=== PATIENT | male | born 1980 | race Hispanic/Latino ===

== ENCOUNTER 2024-03-10 03:03 | Emergency (ER) | payer OTHER, SELFPAY ==
--- NOTE | ~2024-03-10 | CT_ITS ---
EXAMINATION: CT abdomen pelvis w con DATE: 03/10/2024 04:13 INDICATION: Abdominal and back pain TECHNIQUE: Computed tomography (CT) of the abdomen and pelvis was performed with 100 CC Omnipaque 350 intravenous contrast. Automated exposure control and iterative reconstruction technique were employe d. Exam dose: 1254.10 mGy-cm total exam DLP. COMPARISON: 11/19/2016 gallbladder ultrasound 08/15/2016 CT abdomen pelvis FINDINGS: Minimal atelectasis at the lung bases. Diffuse hepatic steatosis. No hepatic, splenic, pancreatic, adrenal or renal space occupying mass les ion. The gallbladder is distended. No gallbladder wall thickening or pericholecystic fluid or fat str anding. Normal caliber of the abdominal aorta. No intraperitoneal or retroperitoneal or pelvic mass lesion or adenopathy or ascites. Normal appendix. No bowel obstruction or intraperitoneal free air. There is small fat-containing umbilical hernia. Small fat-containing left inguinal hernia. No osteolytic or osteoblastic lesions are noted. IMPRESSION: Hepatic steatosis Reviewed, dictated and finalized at [facility] Reviewed, dictated and finalized at [facility] IMPRESSION: Hepatic steatosis
[2024-03-10 03:13] VITALS: BP 146/105; PULSE 56; RESP 13; TEMP 36.4; O2SAT 99
[2024-03-10 03:24] LABS: Basophils Percent Auto 0.3 % (0.2-1.2); Eosinophils Absolute Auto 0.2 K/mm3 (0-0.3); Eosinophils Percent Auto 2.3 % (0-4.4); Hematocrit 44.4 % (42.0-52.0); Hemoglobin 15.5 g/dL (14.0-18.0); Immature Granulocyte Absolute 0.03 K/mm3 (0.00-0.031); Immature Granulocyte Percent A 0.4 % (0-0.5); Lymphocytes Absolute Auto 2.58 K/mm3 (0.9-3.2); Lymphocytes Percent Auto 36.6 % (18.3-44.2); Mean Corpuscular HGB Conc 34.9 g/dl (32-36); Mean Corpuscular Hemoglobin 30.3 pg (26-34); Mean Corpuscular Volume 86.7 fl (80-100); Mean Platelet Volume 10.7 fl (7.4-10.4); Monocytes Absolute Auto 0.7 K/mm3 (0.1-0.6); Monocytes Percent Auto 9.2 % (2.6-8.5); Neutrophils Absolute Auto 3.6 K/mm3 (1.3-6.7); Neutrophils Percent Auto 51.2 % (45.5-73.1); Platelet Count Result 241 k/mm3 (150-375); Red Blood Count 5.12 M/mm3 (4.6-6.20); Red Cell Distribution Width 13.1 % (11.5-14.5)
--- NOTE | 2024-03-10 03:29 | PC.NURSE ---
upon arrival patient noted to have vomitted x3. pt visibly uncomfortable. this rn obtained a verbal order to give patient 4mg of zofran IV push per EDP Dr. roberson. this rn used closed loop communication to confirm med/ route/ patient/ time/ dose.
[2024-03-10 03:32] LABS: Appearance Urine Clear (Clear); Bilirubin Urine Negative (Negative); Blood Urine Negative (Negative); Color Urine Yellow (Yellow); Glucose Urine UA Negative (Negative); Ketones Urine Negative (Negative); Leukocyte Esterase Ur Negative LEU/UL (Negative); Nitrate Urine Negative (Negative); Protein Urine Negative (Negative); Specific Grav Ur 1.014 (1.001-1.035); Urobilinogen Urine 0.2 mg/dL (<2.0)
[2024-03-10 03:34] LABS: Alanine Aminotransferase 78 U/L (6-50); Albumin Level 4.6 g/dL (3.5-5.1); Alkaline Phosphatase 46 U/L (38-126); Anion Gap 11 mmol/L (4-12); Aspartate Amino Transferase 41 U/L (17-59); Bilirubin,Total 0.8 mg/dL (0.2-1.3); Blood Urea Nitrogen 16 mg/dL (9-20); Calcium 9.3 mg/dL (8.4-10.2); Carbon Dioxide 28 mmol/L (22-30); Chloride 100 mmol/L (98-107); Estimated CRCL calculation 79 ml/min; Estimated Glomerular Filt Rate > 60; Glucose 118 mg/dL (65-110); Potassium 3.8 mmol/L (3.4-5.0); Sodium 139 mmol/L (137-145)
[2024-03-10 03:36] LABS: Add Urine Microscopic? NO
--- NOTE | 2024-03-10 03:40 | PC.NURSE ---
EDP Dr. Kirsten PARDO 1mg dilauded IVP.
[2024-03-10] MEDS: ONDANSETRON INJ 4 MG/2 ML VIAL IV PUSH ×2 (03:43→04:59)
[2024-03-10] MEDS: HYDROmorphone HCL INJ (*CRX) 1 MG/ML SYR IV PUSH (03:43)
[2024-03-10] MEDS: SODIUM CHLORIDE 0.9% IV 2,000 ML 999 ML IV CONT (04:13)
[2024-03-10] MEDS: FAMOTIDINE 20 MG/2 ML VIAL IV PUSH (04:15)
[2024-03-10 04:19] VITALS: BP 157/83; PULSE 56; RESP 18; O2SAT 100
[2024-03-10 04:24] LABS: Amphetamine Screen Urine Negative (Negative); Barbiturate Screen Urine Negative (Negative); Benzodiazepines Screen Urine Negative (Negative); Cannabinoid Screen Urine Negative (Negative); Cocaine Screen Urine Negative (Negative); Methadone Screen Urine Negative (Negative); Opiate Screen Urine Negative (Negative); Phencyclidine Screen Urine Negative (Negative)
[2024-03-10 04:37] LABS: Lactic Acid Reflex 1.5 mmol/L (0.7-2.0)
--- NOTE | 2024-03-10 04:37 | ED.GENADULT ---
HPI - General Adult General Chief complaint: Abdominal Pain Stated complaint: abd pain Time Seen by Provider: 03/10/24 03:11 History of Present Illness HPI narrative: [place]ian speaking-[employer] services from communication This is a 43-year-old male presenting with chief complaint of abdominal pain. Patient states the pain started this afternoon. It is a burning pain in the upper quadrants.. It is severe and constant. He has never had pain like this in the past. He has both nausea and vomiting. No urinary deficits. No fevers or chills. Related Data Allergies Allergy/AdvReac Type Severity Reaction Status Date / Time No Known Allergies Allergy Verified 03/10/24 03:12 Exam Narrative: APPEARANCE: Patient cannot sit still and is rolling back and forth pain Head: atraumatic. EYES: EOMI, NOSE: Atraumatic NECK: Trachea midline RESPIRATORY: No increased rate of breathing CARDIOVASCULAR: RRR, ABDOMINAL: Tenderness along the upper quadrants primarily in the epigastric area. No CVA tenderness MUSCULOSKELETAl: No obvious deformities NEURO: Alert. Moving 4/4 extremities SKIN:: Diaphoretic PSYCHIATRIC: Normal affect Course Vital Signs Vital signs: Vital Signs Temperature 97.5 F L 03/10/24 03:13 Pulse Rate 56 L 03/10/24 03:13 Respiratory Rate 13 03/10/24 03:13 Blood Pressure 146/105 H 03/10/24 03:13 Pulse Oximetry 99 03/10/24 03:13 Oxygen Delivery Room Air 03/10/24 03:13 Temperature 97.5 F L 03/10/24 03:13 Pulse Rate 57 L 03/10/24 04:46 Respiratory Rate 19 03/10/24 04:46 Blood Pressure 147/100 H 03/10/24 04:46 Pulse Oximetry 98 03/10/24 04:46 Oxygen Delivery Room Air 03/10/24 03:13 Medical Decision Making [facility] Narrative Medical decision making narrative: -Course: 43-year-old male presenting with severe epigastric pain. CT abdomen pelvis unremarkable. Laboratory studies within normal limits. Patient's presentation sick consistent with peptic ulcer disease. Patient was given multiple rounds of pain medication and antiemetics and mentally get his symptoms under control. He is now tolerating p.o. and was able to drink an entire glass of liquid. I discussed the patient's results with him via the float builder service and will discharge him on a PPI, Carafate and with pain control. When I was explaining to the patient that this can be caused by eating very spicy food both the patient and his friend started laughing. Patient will be discharged with GI follow-up. Given return precautions. -DDX includes but is not limited to: Peptic ulcer disease, pancreatitis. gastritis, gallbladder disease, small-bowel obstruction, cannabinoid hyperemesis -Independent interpretation of studies: Labs reviewed within normal limits. CT shows possible cystitis no other findings. UA no indicative of cystitis. -Interventions: 2 L normal saline, Pepcid, Protonix, Dilaudid, Zofran, Maalox -Shared decision making / Disposition: Discharge -RX Pepcid, Carafate, tylenol, oxycodone x6 Vital Signs Vital Signs: Vital Signs Temperature 97.5 F L 03/10/24 03:13 Pulse Rate 56 L 03/10/24 03:13 Respiratory Rate 13 03/10/24 03:13 Blood Pressure 146/105 H 03/10/24 03:13 Pulse Oximetry 99 03/10/24 03:13 Oxygen Delivery Room Air 03/10/24 03:13 Temperature 97.5 F L 03/10/24 03:13 Pulse Rate 57 L 03/10/24 04:46 Respiratory Rate 19 03/10/24 04:46 Blood Pressure 147/100 H 03/10/24 04:46 Pulse Oximetry 98 03/10/24 04:46 Oxygen Delivery Room Air 03/10/24 03:13 Lab Data 03/10/24 03:19 03/10/24 03:19 Labs: Lab Results 03/10/24 03/10/24 03/10/24 Range/Units 03:19 03:26 04:16 WBC 7.0 (4.5-10.0) K/mm3 RBC 5.12 (4.6-6.20) M/mm3 Hgb 15.5 (14.0-18.0) g/dL Hct 44.4 (42.0-52.0) % MCV 86.7 (80-100) fl MCH 30.3 (26-34) pg MCHC 34.9 (32-36) g/dl RDW 13.1 (11.5-14.5) % Plt Count 241 (150-37
[2024-03-10 04:46] VITALS: BP 147/100; PULSE 57; RESP 19; O2SAT 98
[2024-03-10] MEDS: PANTOPRAZOLE SODIUM IV 40 MG VIAL IV PUSH (04:54)
[2024-03-10] MEDS: MAG HYDROX/AL HYDROX/SIMETH 30 ML UDC PO (04:54)
[2024-03-10 04:55] LABS: Lipase 82 U/L (23-300)
[2024-03-10] MEDS: HYDROmorphone HCL INJ (*CRX) 1 MG/ML SYR 0.5 MG IV PUSH (06:02)
[2024-03-10 06:21] VITALS: BP 135/80; PULSE 61; RESP 16; O2SAT 95
== END 2024-03-10 06:42 | disposition home or self-care (01) ==
PROVIDERS: Emergency Provider Emergency Medicine
DX: K27.9 Peptic ulcer, site unspecified, unspecified as acute or chronic, without hemorrhage or perforation (principal)
CPT/HCPCS: 36415; 74177; 80053; 80307; 81003; 83605; 83690; 85025; 96361; 96374; 96375; 96376; 99284; A9270; J1170; J2405; J2470; J7030; Q9967

== ENCOUNTER 2024-03-28 08:26 | Day surgery (SDC) | payer OTHER, SELFPAY ==
[2024-03-20 10:09] VITALS: BMI 34.8
[2024-03-22 13:42] VITALS: BMI 32.4
[2024-03-28 10:15] VITALS: BP 115/85; PULSE 60; RESP 15; TEMP 36.7; O2SAT 98
[2024-03-28] MEDS: LACTATED RINGERS 1,000 ML 150 ML IV CONT (10:23)
--- NOTE | 2024-03-28 10:29 | WPDHPUPDATE1 ---
History and Physical Update Update Date/Time: 03/28/24 10:29 Patient states epigastric pain and nausea has improved take pantoprazole 40mg p.o. b.i.d. also Carafate 1g q.i.d. History and Physical has been reviewed, including an updated exam of the patient. There are NO changes in the patient's condition. Risks, benefits, and alternatives have been discussed and questions answered. Patient agrees to proceed with procedure.
--- NOTE | 2024-03-28 11:42 | P.PNAN_ITS ---
Anes - Initial Pre Proc Eval Procedure: Operation Date: 03/28/24 11:00 Proposed Procedures p Esophagogastroduodenoscopy - Sourav Rivera MD Date/Time: 03/28/24 11:42 Surgeon: Sourav Rivera MD Pre Op Diagnosis: Upper Abdominal Pain,unspecified w/o Patient Data Age: 43 Gender: M Height: 1.7 m Weight: 94 kg Last Vital Signs Temp 36.7 C 03/28/24 10:15 Pulse 60 03/28/24 10:15 Resp 15 03/28/24 10:15 BP 115/85 03/28/24 10:15 Pulse Ox 98 03/28/24 10:15 O2 Del Method Room Air 03/28/24 10:15 Allergies Allergy/AdvReac Type Severity Reaction Status Date / Time No Known Allergies Allergy Verified 03/28/24 10:04 Home Medications Medication Instructions Recorded Confirmed Type pantoprazole 40 mg tablet,delayed 40 mg PO BID #60 tabs 03/12/24 03/28/24 Rx release sucralfate 1 gram tablet (Carafate) 1 g PO ACHS #120 tabs 03/12/24 03/28/24 Rx Patient hx anesthesia problems: none Family hx anesthesia problems: none Results Review: All pre-operative results and documents have been reviewed as part of the pre- operative evaluation. [facility] Social History Social History Smoking status: Never smoker Alcohol intake: never Substance use: never Substance use type: does not use Living arrangements: with family Spiritual care concerns: No Anes - Eval Final PreProcedure Day of Procedure 03/28/24 11:42 Patient weight: obese Heart: regular rate and rhythm Lungs: clear to auscultation Airway: Mallampati scale class II Neurological: alert and oriented Last oral intake: >/= 8 hours ASA classification: II Emergent: no Anesthetic plan: proceed Anesthesia type and monitoring: general GIVS and standard monitoring Results Review: All pre-operative results and documents have been reviewed as part of the pre- operative evaluation. Informed Consent: The patient's anesthetic plan and its attendant risks and benefits were discussed with the patient/family/POA. Questions were solicited and answers provided to the satisfaction of the patient/family/POA.
[2024-03-28 11:56] VITALS: BP 125/81; PULSE 67; RESP 15; O2SAT 98
[2024-03-28 12:06] VITALS: BP 118/88; PULSE 58; RESP 15; O2SAT 98
--- NOTE | 2024-03-28 12:07 | WPDANESPN ---
Anes - Prog Note Post-Op Date/Time: 03/28/24 12:07 Cardiovascular status: normal Respiratory status: normal Airway patency: baseline Mental status: baseline Post-Op hydration status: normal Vital Signs: Last Vital Signs Temp 36.7 C 03/28/24 10:15 Pulse 67 03/28/24 11:56 Resp 15 03/28/24 11:56 BP 125/81 03/28/24 11:56 Pulse Ox 98 03/28/24 11:56 O2 Del Method Room Air 03/28/24 11:56 Pain Score (VAS): 0 Patient Feedback: Patient satisfied with anesthetic care.
[2024-03-28 12:16] VITALS: BP 120/95; PULSE 52; RESP 15; O2SAT 100
== END 2024-03-28 12:45 | disposition home or self-care (01) ==
PROVIDERS: Visit Provider Internal Medicine Gastroenterology
PROC: 0DJ08ZZ Inspection of Upper Intestinal Tract, Via Natural or Artificial Opening Endoscopic (ICD-10-PCS; CPT 43235; principal; 2024-03-28 11:00)
DX: K21.9 Gastro-esophageal reflux disease without esophagitis (principal); R10.13 Epigastric pain
CPT/HCPCS: 43239

== ENCOUNTER 2024-05-01 05:39 | Emergency (ER) | payer OTHER, SELFPAY ==
--- NOTE | ~2024-05-01 | XR_ITS ---
PA, oblique, and lateral views of the left fifth finger CLINICAL HISTORY: Laceration, foreign body FINDINGS: No fracture or dislocation seen. Joint spaces are intact. Soft tissues are unremarkable. No radiopaque foreign body. IMPRESSION: Unremarkable exam. No radiopaque foreign body. Reviewed, dictated and finalized at [facility].
[2024-05-01 05:49] VITALS: BP 124/93; PULSE 65; RESP 15; TEMP 36.7; O2SAT 98
[2024-05-01] MEDS: LIDO 1%/EPINEPHRINE 1:100,000 20 ML VIAL (07:29)
--- NOTE | 2024-05-01 07:39 | ED.GENADULT ---
HPI - General Adult General Chief complaint: Extremity Injury, Upper Stated complaint: left pinky scar Time Seen by Provider: 05/01/24 05:47 History of Present Illness HPI narrative: Patient is a 43-year-old male who presents ER with concerns for imbedded foreign body. He was on a wooden ladder yesterday when he lost his balance and had multiple splinters in his left hand. He still has 1 over the proximal phalanx of the left 5th digit on the palmar aspect. No drainage. He is unable to get it out. He has pain with attempting to flex the hand. No fevers or chills. No purulent drainage. Tetanus updated 9 years ago. Related Data Allergies Allergy/AdvReac Type Severity Reaction Status Date / Time No Known Allergies Allergy Verified 05/01/24 05:53 Review of Systems Constitutional: Constitutional: Reports no additional constitutional complaints Musculoskeletal: Musculoskeletal: Denies arthralgias, Denies joint swelling and Denies muscle cramps Integumentary/Breasts: Skin/Breast: Reports erythema and Denies rash Comments: abrasion fingers PMFSH Past Medical History Medical History (Updated 05/01/24 @ 08:33 by Zurdo Gardner MD) GERD (gastroesophageal reflux disease) Hepatic steatosis Social History Social History Smoking status: Never smoker Alcohol intake: never Substance use: never Substance use type: does not use Living arrangements: with family Spiritual care concerns: No Exam Narrative: GENERAL: Well-appearing, well-nourished, and in no acute distress. HEAD: Normocephalic, atraumatic. EXTREMITIES: Left hand exam reveals normal strength and range of motion of digits 1-4. Digit 5 with decreased flexion due to pain but normal extension strength. There are 2 defects in the skin over the proximal phalanx consistent with splinter injury. A foreign body can be felt beneath the skin but it seems slightly deep. SKIN: Warm, dry, no rash. NEURO: No focal deficits. Alert and oriented x3. PSYCH: Normal mood and affect. Course Course Emergency Course: Foreign body removed. Bandage applied. Discharge with prophylactic antibiotic. Vital Signs Vital signs: Vital Signs Temperature 98.1 F 05/01/24 05:49 Pulse Rate 65 05/01/24 05:49 Respiratory Rate 15 05/01/24 05:49 Blood Pressure 124/93 H 05/01/24 05:49 Pulse Oximetry 98 05/01/24 05:49 Oxygen Delivery Room Air 05/01/24 05:49 Temperature 98.1 F 05/01/24 05:49 Pulse Rate 66 05/01/24 07:55 Respiratory Rate 16 05/01/24 07:55 Blood Pressure 125/93 H 05/01/24 07:55 Pulse Oximetry 100 05/01/24 07:55 Oxygen Delivery Room Air 05/01/24 05:49 Procedures Foreign Body Removal Foreign Body #1: Foreign Body Removal Date: 05/01/24 Foreign Body Removal Time: 08:30 Site: left and hand Description of foreign body: other (Splinter) Sedation/Analgesia: none Technique: removal with forceps and incision made to facilitate removal Confirmed by:: direct visualization Complications: none Medical Decision Making Vital Signs Vital Signs: Vital Signs Temperature 98.1 F 05/01/24 05:49 Pulse Rate 65 05/01/24 05:49 Respiratory Rate 15 05/01/24 05:49 Blood Pressure 124/93 H 05/01/24 05:49 Pulse Oximetry 98 05/01/24 05:49 Oxygen Delivery Room Air 05/01/24 05:49 Temperature 98.1 F 05/01/24 05:49 Pulse Rate 66 05/01/24 07:55 Respiratory Rate 16 05/01/24 07:55 Blood Pressure 125/93 H 05/01/24 07:55 Pulse Oximetry 100 05/01/24 07:55 Oxygen Delivery Room Air 05/01/24 05:49 Imaging Data Radiologist's impression: ITS Impressions Finger X-Ray 05/01/24 07:39 IMPRESSION: Unremarkable exam. No radiopaque foreign body. Discharge Plan Discharge Clinical Impression: Foreign body finger Patient Disposition: Home, Self-Care Condition
[2024-05-01] MEDS: TETANUS,DIPHTHERIA,AC PERTUSSIS ADULT (0.5 ML) BOOSTRIX IM (07:49)
[2024-05-01 07:55] VITALS: BP 125/93; PULSE 66; RESP 16; O2SAT 100
== END 2024-05-01 09:25 | disposition home or self-care (01) ==
PROVIDERS: Emergency Provider Emergency Medicine
DX: S60.552A Superficial foreign body of left hand, initial encounter (principal); W45.8XXA Other foreign body or object entering through skin, initial encounter; K21.9 Gastro-esophageal reflux disease without esophagitis; Z23 Encounter for immunization
CPT/HCPCS: 10120; 73140; 90471; 90715; 99283

== ENCOUNTER 2024-05-19 15:43 | Emergency (ER) | payer OTHER, SELFPAY ==
--- NOTE | ~2024-05-19 | XR_ITS ---
XR foot RT min 3V Ordering provider: Chitra Pollard PA-C History: . pain, rolled foot . Comparison: None. FINDINGS: BONES: No acute fracture or dislocation. JOINT SPACES: Normal. No tarsal coalition. SOFT TISSUES: Normal. IMPRESSION: No acute osseous abnormality of the right foot. Reviewed, dictated and finalized at [facility].
--- NOTE | ~2024-05-19 | XR_ITS ---
XR ankle RT min 3V Ordering provider: Chitra Pollard PA-C History: . fall, pain . Comparison: None. FINDINGS: BONES: No acute fracture or dislocation. JOINT SPACES: Normal. SOFT TISSUES: Normal. IMPRESSION: No acute osseous abnormality of the right ankle. Reviewed, dictated and finalized at [facility].
[2024-05-19 16:11] VITALS: BP 135/71; PULSE 67; RESP 16; TEMP 36.6; O2SAT 98
--- NOTE | 2024-05-19 19:11 | PC.NURSE ---
Assumed care of patient at this time.
--- NOTE | 2024-05-19 19:24 | ED.LOWEXIN ---
HPI - Extremity Injury (Lower) General Chief Complaint: Extremity Injury, Lower Stated Complaint: right ankle injury Time Seen by Provider: 05/19/24 18:51 Source: patient Mode of arrival: ambulatory Limitations: no limitations History of Present Illness HPI Narrative: Patient is a 43-year-old male who presents the ED with report of right foot and ankle pain. Patient reports he twisted his ankle a few weeks ago while playing soccer. He states pain was improving and stable, but he twisted his ankle again on Monday. He then attempted going on a hike yesterday and reports having worsening pain now. Complains of pain throughout his ankle and lateral foot. Is having trouble bearing weight due to pain. Took Advil around 1:00 p.m. today. Denies any numbness. Related Data Allergies Allergy/AdvReac Type Severity Reaction Status Date / Time No Known Allergies Allergy Verified 05/19/24 16:13 Review of Systems Review of Systems: All systems reviewed & are unremarkable except as noted in HPI. All systems reviewed & are unremarkable except as noted in HPI and below PMFSH Past Medical History Medical History GERD (gastroesophageal reflux disease) Hepatic steatosis Social History Social History Smoking status: Never smoker Alcohol intake: never Substance use: never Substance use type: does not use Living arrangements: with family Spiritual care concerns: No Exam Narrative: GENERAL: Well appearing, obese with BMI of 31.9, non-toxic, in no acute distress. HEAD: Normocephalic, atraumatic. RESPIRATORY: Airway patent, respirations nonlabored. CARDIOVASCULAR: Regular rate and rhythm without murmurs, rubs, or gallops. Pedal pulses intact. MUSCULOSKELETAL: Moves all extremities. No gross deformities. TTP along inferior lateral malleoli of R ankle, extending across R anterior lateral dorsal foot. Mild tenderness along base of R lateral dorsal foot. Less significant tenderness along R heel inferior to medial malleoli. No significant swelling. Sensation intact throughout extremity. SKIN: Warm, dry, normal color. NEURO: A&O X3. Speech clear. No ataxic movements. PSYCHIATRIC: Appropriate mood and affect. Normal interaction. Course Vital Signs Vital signs: Vital Signs Temperature 97.9 F 05/19/24 16:11 Pulse Rate 67 05/19/24 16:11 Respiratory Rate 16 05/19/24 16:11 Blood Pressure 135/71 05/19/24 16:11 Pulse Oximetry 98 05/19/24 16:11 Oxygen Delivery Room Air 05/19/24 16:11 Temperature 97.9 F 05/19/24 16:11 Pulse Rate 66 05/19/24 19:53 Respiratory Rate 17 05/19/24 19:53 Blood Pressure 134/85 05/19/24 19:53 Pulse Oximetry 98 05/19/24 19:53 Oxygen Delivery Room Air 05/19/24 19:53 MDM - Extremity Injury (Lower) MDM Narrative Medical decision making narrative: Patient?s injury is consistent with musculoskeletal etiology. No signs of neurologic or vascular compromise on physical examination. Compartments are soft without signs of compartment syndrome. XR of right foot/ankle negative for acute osseous abnormality. Pain is consistent with ankle sprain. Patient is felt to be stable for discharge home and further outpatient management and treatment. Placed in Johnny bandage in the ED. Patient was offered crutches but declined. Will be referred to orthopedics for further evaluation if needed. Advised to continue Tylenol, ibuprofen, rice therapy. Patient in agreement with plan. Given return precautions. Discharged in stable condition. Medical Records Attestation: I reviewed the patient's medical records. Imaging Data Attestation: I personally reviewed and interpreted this imaging study as follows: Radiologist's impression: ITS Impressions Ankle X-Ray 05/19/24 20:49 IMPRESSION: No acute osseous abnormality of the right ankle. Fo
[2024-05-19 19:53] VITALS: BP 134/85; PULSE 66; RESP 17; O2SAT 98
[2024-05-19] MEDS: KETOROLAC (*BKC) 60 MG/2 ML VIAL IM (19:55)
[2024-05-19] MEDS: HYDROcodone/acetaminophen (*CRX) 5-325 MG TABLET 1 TAB PO (19:55)
== END 2024-05-19 21:46 | disposition home or self-care (01) ==
PROVIDERS: Emergency Provider Physician Assistant
DX: S93.401A Sprain of unspecified ligament of right ankle, initial encounter (principal); X50.1XXA Overexertion from prolonged static or awkward postures, initial encounter; K21.9 Gastro-esophageal reflux disease without esophagitis
CPT/HCPCS: 73610; 73630; 96372; 99283; A9270; J1885